=== PATIENT | male | born 1955 | race Caucasian/White ===

== ENCOUNTER 2019-08-19 16:54 | Emergency (ER) | payer OTHER ==
[~2019-08-19] VITALS: Ht 188 cm; Wt 100.0 kg
[~2019-08-19 16:54] MED LIST: CEPH-368 PO; LINE600T15 PO
--- NOTE | 2019-08-19 17:18 | NUR ---
Olga RN: Pt JIMBO FARR from [place], guards at bedside. Pt reports near syncopal episode w/ dizziness & diaphoresis while having a BM today at approx 1600. Pt denies CP, SOB & N/V/D. Pt was seen in ED earlier today for LLE wound. Wound was dressed in ED during prior visit 4 hours ago, dressing clean, dry & intact. Pt on continuous cardiac & pulse ox monitoring, NAD, no needs at this time, bedside report to KIRSTIE Underwood.
[2019-08-19] MEDS ORDERED: MECLIZINE CHEWABLE 25 MG TAB ONE (17:19)
[2019-08-19 17:36] LABS: BASOPHILS % (AUTO) 0 % (0-1); EOSINOPHILS # (AUTO) 0.03 x10^3/uL (0-0.4); EOSINOPHILS % (AUTO) 0 % (1-7); LYMPHOCYTES # (AUTO) 0.71 x10^3/uL (1-3.4); LYMPHOCYTES % (AUTO) 6 % (22-44); MD NO; MEAN CORPUSCULAR HEMOGLOBIN 30.8 pg (27.5-34.5); MEAN CORPUSCULAR HGB CONC 33.9 g/dL (33.2-36.2); MEAN CORPUSCULAR VOLUME 90.9 fL (81-97); MONOCYTES # (AUTO) 0.62 x10^3/uL (0.2-0.8); MONOCYTES % (AUTO) 5 % (2-9); NEUTROPHILS # (AUTO) 10.28 x10^3/uL (1.8-6.8); NEUTROPHILS % (AUTO) 88 % (42-75); PLATELET COUNT 265 x10^3/uL (130-400); RED BLOOD COUNT 4.36 x10^6/uL (4.38-5.82); RED CELL DISTRIBUTION WIDTH 13.7 % (9.4-14.8)
[2019-08-19 17:49] LABS: ALBUMIN 3.4 g/dL (3.4-5.0); ANION GAP 5 mmol/L (5-15); CALCIUM 8.8 mg/dL (8.5-10.1); CHLORIDE 111 mmol/L (98-107); CREATININE 1.09 mg/dL (0.7-1.3)
[2019-08-19 17:52] LABS: TROPONIN I < 0.015 ng/mL (0.000-0.045)
[2019-08-19] MEDS ORDERED: MECLIZINE CHEWABLE 25 MG TAB PO ONE (18:00)
[2019-08-19] MEDS ORDERED: SODIUM CHLORIDE FLUSH 10ML SYR IVF ONE (18:30)
[2019-08-19] MEDS ORDERED: CEPHALEXIN 500 MG CAPSULE PO ONE (19:00)
--- NOTE | 2019-08-19 19:22 | NUR ---
THIS RN TO DC PATIENT, DISCHARGE PAPERWORK SIGNED BY OFFICERS WITH PATIENT.
[2019-08-19 19:23] VITALS: BP 137/76
[2019-08-19] MEDS ORDERED: CEPHALEXIN 500 MG CAPSULE ONE (19:31)
== END 2019-08-19 19:35 | disposition home or self-care (01) ==
LOC: ED 17:54
DX: R42 Dizziness and giddiness (principal); R55 Syncope and collapse
CPT/HCPCS: 36415; 70450; 80048; 82040; 84484; 85025; 93005; 99285